=== PATIENT | male | born 1935 | race Caucasian/White ===

== ENCOUNTER 2024-05-13 06:31 | Emergency (ER) | payer MEDICARE, MEDICAID ==
[~2024-05-13] VITALS: Ht 167.6 cm; Wt 78.5 kg
[2024-05-13 06:32] VITALS: O2SAT 99
[2024-05-13 07:16] LABS: BASOPHILS % 0.4 % (0.0-2.0); EOSINOPHILS % 0.1 % (0.0-5.0); HEMATOCRIT. 40.3 % (42.0-52.0); HEMOGLOBIN. 12.6 g/dL (14.0-18.0); MEAN CORPUSCULAR HGB CONC 31.3 g/dL (31.0-37.0); MEAN CORPUSCULAR VOLUME 79.8 fL (80.0-94.0); MONOCYTES % 1.6 % (2.0-8.0); NEUTROPHILS % 78.9 % (40.0-76.0); PLATELET 243 x1000/uL (130-400); RED BLOOD CELL COUNT 5.05 mill/uL (4.7-6.1); RED CELL DISTRIBUTION WIDTH 25.5 % (11.6-14.6); WHITE BLOOD COUNT 7.4 x1000/uL (4.5-11.0)
[2024-05-13] MEDS: SODIUM CHLORIDE 0.9% (SEPSIS BOLUS) IV ONE (07:23)
[2024-05-13 07:24] LABS: POTASSIUM 4.6 mEq/L (3.5-5.1)
[2024-05-13] MEDS: PANTOPRAZOLE SODIUM 40 MG/VIAL IV STA (07:24)
[2024-05-13 07:25] LABS: CALCIUM 7.8 mg/dL (8.7-10.4); DIFFERENTIAL COMMENT 1
[2024-05-13 07:26] LABS: ADD RBC MORPHOLOGY YES
[2024-05-13 07:30] LABS: CREATININE 3.5 mg/dL (0.6-1.3)
[2024-05-13] MEDS: CEFTRIAXONE 1GM/50ML 50 ML IV ONE (07:31)
[2024-05-13 07:54] LABS: LACTIC ACID 9.9 mmol/L (0.4-2.0)
[2024-05-13] MEDS: VASOPRESSIN 20 UNIT in SODIUM CHLORIDE 0.9% 99 ML IV STA (08:22)
[2024-05-13] MEDS: NOREPINEPHRINE 8MG/250ML PMX 250 ML IV ONE (08:48)
[2024-05-13 08:50] LABS: INR 2.3; PARTIAL THROMBOPLASTIN TIME 56.7 sec (23.4-31.0); PROTHROMBIN TIME 24.5 sec (9.6-11.0)
[2024-05-13 08:54] LABS: ALANINE AMINOTRANSFERASE 246 IU/L (10-49); ALBUMIN 2.5 g/dL (3.2-4.8); ASPARTATE AMINOTRANSFERASE 462 IU/L (<34); BILIRUBIN DIRECT 1.3 mg/dL (<=3.0); BILIRUBIN TOTAL 1.8 mg/dL (0.1-1.0); PROTEIN TOTAL 5.6 g/dL (6.0-8.3)
[2024-05-13] MEDS: PANTOPRAZOLE 80 MG in SODIUM CHLORIDE 0.9% 100 ML IV STA (08:56)
[2024-05-13] MEDS: OCTREOTIDE ACETATE 50 MCG/ML 1ML IV STA (08:56)
[2024-05-13] MEDS ORDERED: ACETAMINOPHEN 325MG TABLET PO PRN ×2 (09:00)
[2024-05-13] MEDS ORDERED: DEXTROSE 50% WATER 50ML SYRINGE IV PRN (09:00)
[2024-05-13] MEDS ORDERED: CLONIDINE 0.1MG TABLET PO PRN (09:00)
[2024-05-13] MEDS ORDERED: VASOPRESSIN 20 UNIT in SODIUM CHLORIDE 0.9% 99 ML IV PRN (09:00)
[2024-05-13] MEDS: SODIUM CHLORIDE 0.9% 1,000 ML IV ONE (09:00)
[2024-05-13] MEDS ORDERED: LORAZEPAM 0.5MG TABLET PO PRN (09:00)
[2024-05-13] MEDS ORDERED: IPRATROPIUM/ALBUTEROL 0.5-3(2.5)MG/3ML NEB HHN PRN (09:00)
[2024-05-13] MEDS ORDERED: DEXT 5%/0.9% NACL 1,000 ML IV SCH (09:00)
[2024-05-13] MEDS ORDERED: PIPERACILLIN/TAZOBACTAM 3.375 G in DEXTROSE 5% WATER 50 ML IV SCH (10:00)
[2024-05-13] MEDS ORDERED: PIPERACILLIN/TAZO 3.375G/50ML 50 ML IV SCH (10:00)
[2024-05-13] MEDS ORDERED: HEPARIN 25,000 UNITS PREMIX 250 ML IV STA (10:08)
[2024-05-13 10:34] LABS: PHOSPHORUS 7.1 mg/dL (2.5-4.9)
[2024-05-13] MEDS ORDERED: IOHEXOL-350 100 ML BOTTLE ONE (10:56)
[2024-05-13] MEDS ORDERED: PANTOPRAZOLE 80 MG in SODIUM CHLORIDE 0.9% 100 ML IV SCH (11:00)
[2024-05-13] MEDS ORDERED: HEPARIN 5000 UNITS/ML VIAL IV PRN ×2 (12:00)
[2024-05-13] MEDS ORDERED: HEPARIN 25,000 UNITS PREMIX 250 ML IV PRN ×3 (12:00→13:00)
[2024-05-13] MEDS: HEPARIN 5000 UNITS/ML VIAL IV SCH (12:00)
[2024-05-13 12:12] LABS: ANISOCYTOSIS 2+; MICROCYTOSIS 1+
[2024-05-13 12:13] LABS: PLATELET ESTIMATE NORMAL
[2024-05-13] MEDS: SODIUM BICARBONATE 8.4% 50MEQ/50ML SYR IV NR ×2 (12:13→14:49)
[2024-05-13] MEDS ORDERED: HEPARIN BOLUS PRN aPTT <36 IV ×2 (12:15→19:00)
[2024-05-13] MEDS ORDERED: HEPARIN BOLUS PRN aPTT 37-44 IV ×2 (12:15→19:00)
[2024-05-13] MEDS ORDERED: HEPARIN 25,000 UNITS PREMIX 250 ML IV SCH (12:15)
[2024-05-13] MEDS ORDERED: HEPARIN 80 UNITS/KG BOLUS IV SCH (12:15)
[2024-05-13 12:17] LABS: CHLORIDE 107 mEq/L (98-107); POTASSIUM 4.2 mEq/L (3.5-5.1); SODIUM 139 mEq/L (136-145)
[2024-05-13 12:19] LABS: CALCIUM 7.4 mg/dL (8.7-10.4)
[2024-05-13 12:23] LABS: CREATININE 3.6 mg/dL (0.6-1.3)
[2024-05-13 12:24] LABS: UREA NITROGEN BLOOD 54 mg/dL (9-23)
[2024-05-13] MEDS: DOPAMINE 400MG/250ML PREMIX 250 ML IV PRN (12:31)
[2024-05-13 12:38] LABS: HEMATOCRIT. 39.2 % (42.0-52.0); HEMOGLOBIN. 11.7 g/dL (14.0-18.0); MEAN CORPUSCULAR HEMOGLOBIN 24.5 pg (28.0-32.0); MEAN CORPUSCULAR HGB CONC 29.9 g/dL (31.0-37.0); MEAN PLATELET VOLUME 10.1 fl (7.4-10.4); PLATELET 231 x1000/uL (130-400); RED BLOOD CELL COUNT 4.78 mill/uL (4.7-6.1); RED CELL DISTRIBUTION WIDTH 25.5 % (11.6-14.6); WHITE BLOOD COUNT 4.9 x1000/uL (4.5-11.0)
[2024-05-13 12:40] LABS: DIFFERENTIAL COMMENT 1
[2024-05-13 12:43] LABS: GLUCOSE 45 mg/dL (70-105); TROPONIN I HIGH SENSITIVITY 96 ng/L (3.0-53)
[2024-05-13 12:44] LABS: CARBON DIOXIDE < 10 mEq/L (21-32)
[2024-05-13] MEDS ORDERED: HEPARIN 80 UNITS/KG BOLUS IV NR (12:45)
[2024-05-13] MEDS ORDERED: HEPARIN BOLUS PRN aPTT 30-44 IV ×2 (13:00→19:00)
[2024-05-13] MEDS: HEPARIN 60 UNITS/KG BOLUS IV NR (13:00)
[2024-05-13 13:15] LABS: PLATELET ESTIMATE NORMAL; TOXIC VACUOLATION 3+
[2024-05-13 13:17] LABS: ANISOCYTOSIS 1+
[2024-05-13 14:00] VITALS: BP 110/44; PULSE 55; RESP 16; TEMP 36.89184; O2SAT 99
[2024-05-13] MEDS ORDERED: SODIUM BICARBONATE 8.4% 50MEQ/50ML SYR IV ONE (14:00)
[2024-05-13 14:45] LABS: BG BASE EXCESS -25.8 mmol/L (-2.0-3.0); BG CARBOXYHEMOGLOBIN 0.1 % (0.5-1.5); BG FRACTION INSPIRED OXYGEN 21; BG HCO3 ACT 4.4 mmol/L (21.0-28.0); BG METHEMOGLOBIN 0.3 % (0.5-1.5); BG OXYHEMOGLOBIN 92.6 % (94.0-98.0); BG PCO2 19.6 mmHg (35.0-48.0); BG PH 6.969 (7.350-7.450); BG PO2 97.3 mmHg (83.0-108.0); BG SAMPLE SITE LEFT BRACHIAL; BG TOTAL HEMOGLOBIN 11.5 g/dL (13.5-17.5); BG VENT MODE ROOM AIR
[2024-05-13] MEDS ORDERED: HEPARIN BOLUS PRN aPTT <30 IV (19:00)
== END 2024-05-13 16:15 ==
LOC: ER 06:31 → EDBEDREQ 06:37 → EDBEDREQTM 07:55 → EDBEDREQSVC 08:24 → EDBEDREQTM 08:24 → ER 16:15
DX: A41.9 Sepsis, unspecified organism (principal); K55.059 Acute (reversible) ischemia of intestine, part and extent unspecified; I48.91 Unspecified atrial fibrillation; R65.21 Severe sepsis with septic shock; I10 Essential (primary) hypertension; Z79.01 Long term (current) use of anticoagulants; Z87.11 Personal history of peptic ulcer disease; Z95.2 Presence of prosthetic heart valve
CPT/HCPCS: 99291; 74174; 96365; 96375; 71045; 96367; 80076; 80048; 82962; 83036; 83880; 83605; 83690; 83735; 84100; 85025; 85610; 85730; 86850; 86900; 86901; 87040; 84484; 84145; 74018; 82805; 82375; 93005; 36600; 96376; 36415; Q9967; J2354; J0696; J1644 ×2; J3490 ×3; J2470; J7050; J7030; J1265; J2543; J7060